=== PATIENT | female | born 1940 | race Caucasian/White ===

== ENCOUNTER 2017-07-25 07:01 | Inpatient (IN) ==
--- NOTE | 2017-07-25 07:05 | Anesthesia Evaluation PreOp ---
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 History: Denies Any Significant HX Other Medical History: Diabetes Type II, Thyroid, Other (anxiety/depression) Anesthesia History: No Prior Anesthetic Complications, Past Anesthesia Alcohol Use: none Drug use: none Medications and Allergies Albuterol Sulfate [Ventolin Hfa] 2 puff IH Q4H PRN 07/09/17 [History] Aspirin 81 mg PO DAILY 07/09/17 [History] Atorvastatin Calcium [Lipitor] 20 mg PO DAILY 07/09/17 [History] Fluticasone/Salmeterol [Advair 500-50 Diskus] 1 puff IH DAILY 07/09/17 [History] Furosemide [Lasix] 60 mg PO DAILY 07/09/17 [History] Levothyroxine [Synthroid] 125 mcg PO 0630 07/09/17 [History] Lisinopril [Zestril] 10 mg PO DAILY 07/09/17 [History] Loperamide [Imodium] 2 mg PO BID PRN 07/09/17 [History] Lysine HCl [l-Lysine] 500 mg PO DAILY 07/09/17 [History] Mag Hydrox/Al Hydrox/Simeth [NJ Acid Suspension] 30 ml PO QID PRN 07/09/17 [ History] Megestrol Acetate [Megace] 40 mg PO DAILY 07/09/17 [History] Metoprolol XL (24 HR) Succ [Toprol XL] 50 mg PO DAILY 07/09/17 [History] Ondansetron HCl [Zofran] 4 mg PO Q6H PRN 07/09/17 [History] Paroxetine [Paxil] 60 mg PO DAILY 07/09/17 [History] Potassium Chloride [K-Tab ER] 20 meq PO DAILY 07/09/17 [History] Tiotropium [Spiriva] 2 puff IH 0700 07/09/17 [History] 3 Allergy/AdvReac Type Severity Reaction Status Date / Time No Known Allergies Allergy Verified 07/25/17 07:48 - Meds/Allergy Pre-op Review Medications Reviewed: Yes Allergies Reviewed: Yes Beta Blockers on Current Med List: Yes If Beta Blockers taken, Date/Time (Last Dose taken): 07/24/2017 at 1700 Anesthesia Results - Labs Laboratory Tests 07/18/17 07/18/17 12:06 12:06 WBC 8.7 Hgb 10.2 L Hct 32.8 L Plt Count 232 Sodium 141 Potassium 3.7 BUN 12 Creatinine 1.18 H - Imaging EKG: report reviewed (04/25/2016 SR, possible LAE, NSST abnormality) Additional studies: 07/21/[address] IMPRESSION: Multiple pulmonary nodules, two in the right lower lobe and one in the left lower lobe. Thiese are in addition to a calcified nodule seen in the left lower lobe. Only one noncalcified nodule was previously seen in 2008. No evidence of adenopathy. Metastatic disease cannot be completely ruled out at this time. 04/04/2017 Echo Impressions: LVEF 60-65%. Normal left ventricular size and systolic function. Mild concentric hypertrophy of the left ventricle. No significant valvular dysfunction. No pulmonary hypertension. 11/19/2013 Echo Impressions: * Technically sub-optimal due to poor echocardiographic windows. * LVEF 60-65%. * Mild to moderate left ventricular hypertrophy. * Mild left ventricular diastolic dysfunction. * Normal right ventricular structure and function. * Mitral valve not well visualized. * Grossly, it appears normal in function. * No mitral regurgitation. * No mitral stenosis. * No evidence of pulmonary hypertension. Anesthesia Exam O2 Sat Height 1.73 m Height 1.73 m Weight 93.894 kg Weight 93.894 kg O2 Sat by Pulse Oximetry 100 Vital Signs Temp Pulse Resp BP Pulse Ox 97.8 F 86 18 100/31 100 07/25/17 07:47 07/25/17 07:47 07/25/17 07:47 07/25/17 07:47 07/25/17 07:47 Height: 5'8'' Weight: 207 lbs NPO (# of Hours): 8 Pain Scale: 0 Pain Scale Used: Numeric (1 - 10) - HEENT Pupil (Motor): EOMI Mallampati: II Teeth: Edentulous Oral Opening: Greater than 3 - WELL SHOOTER LOC: Oriented WELL SHOOTER Motor: Normal RUE, Normal LUE, Normal RLE, Normal LLE, Normal Face WELL SHOOTER Sensory: Normal: RUE, LUE, RLE, LLE, Face - Cardiac Rhythm: Regular Murmur: Systolic - Pulmonary Breath Sounds: bilateral Clear Respiratory Effort: Symmetrical Anesthesia Assess/Plan ASA Score: 4 Modified [place] Scale for Level of Consciousness: Cooperative, oriented, and tranquil Anesthetic Plan: General Monitoring Plan: Standard Monitors, A-Line Recovery Plan: PACU
--- NOTE | 2017-07-25 07:13 | History & Physical Report ---
Date of Encounter: 07/25/17 Time of Encounter: 07:11 24 Hour HP Update - Instructions Instructions: If the History and Physical is less than 30 days old and was completed prior to A.M. admission and or procedure and has NOT been updated on calendar day of procedure please complete this update prior to performing procedure. - Update Patient reports changes in Medical Condition: No Changes in examination, assessment, or condition: No Changes in Medication: No Preop tests/diagnostics Reviewed: Yes Surgery Remains Indicated: Yes Consent for Planned Operative Procedure(s) Verified: Yes Additions to current History and Physical: I will perform h/s d&c for endometrial thickening during bowel surgery - Pre-Operative Checklist Preoperative Checklist Indicated: Yes Prophylactic Antibiotic Ordered: Yes Home Medications Include Beta Nicole: No Beta Nicole Taken Today (Day of Surgery): No Beta Nicole Taken Yesterday (Day Prior to Surgery): No
[2017-07-25] MEDS ORDERED: Plasma-Lyte A (PH 7.4) 1,000 ML IVC SCH (07:15)
[2017-07-25] MEDS ORDERED: Albuterol 2.5 MG/3 ML NEBULIZER IH ONE (07:15)
[2017-07-25] MEDS ORDERED: cefOXitin 2,000 MG in D5% in Water (Mini-Bag+) 100 ML IVPB ONE (07:15)
[2017-07-25] MEDS ORDERED: Lidocaine -MPF 1% 2 ML VIAL ID ONE (07:15)
[2017-07-25] MEDS ORDERED: Albuterol 2.5 MG/3 ML NEBULIZER ONE (07:21)
[2017-07-25] MEDS ORDERED: *HR* Propofol 200 MG/20 ML VIAL IVP ONE (07:28)
[2017-07-25] MEDS ORDERED: *HR* FentaNYL (PF) 100 MCG/2 ML VIAL ONE (07:28)
[2017-07-25] MEDS ORDERED: Lidocaine -MPF 2% 2 ML VIAL ONE ×2 (07:29→07:35)
[2017-07-25] MEDS ORDERED: Ketamine *HR* 500 MG/10 ML MDV ONE (07:29)
[2017-07-25] MEDS ORDERED: *HR* Rocuronium Bromide 50 MG/5 ML VIAL ONE (07:30)
[2017-07-25] MEDS ORDERED: Acetaminophen IV 1,000 MG/100 ML INFUS..BTL ONE (08:06)
--- NOTE | 2017-07-25 08:09 | History & Physical Report ---
Date of Encounter: 07/25/17 Time of Encounter: 08:08 24 Hour HP Update - Instructions Instructions: If the History and Physical is less than 30 days old and was completed prior to A.M. admission and or procedure and has NOT been updated on calendar day of procedure please complete this update prior to performing procedure. - Update Patient reports changes in Medical Condition: No Changes in examination, assessment, or condition: No Changes in Medication: No Preop tests/diagnostics Reviewed: Yes Surgery Remains Indicated: Yes Consent for Planned Operative Procedure(s) Verified: Yes - Pre-Operative Checklist Preoperative Checklist Indicated: Yes Prophylactic Antibiotic Ordered: Yes Home Medications Include Beta Nicole: Yes Beta Nicole Taken Today (Day of Surgery): No Beta Nicole Taken Yesterday (Day Prior to Surgery): Yes
[2017-07-25] MEDS ORDERED: Ondansetron 4 MG/2 ML VIAL ONE ×2 (09:05→14:21)
[2017-07-25] MEDS ORDERED: Dexamethasone 4 MG/ML VIAL ONE ×2 (09:05→14:21)
[2017-07-25] MEDS ORDERED: *HR* HYDROmorphone (PF) 1 MG/ML SYRINGE IVP PRN ×2 (09:59→12:23)
[2017-07-25] MEDS ORDERED: Ondansetron 4 MG/2 ML VIAL IVP PRN ×2 (09:59→12:23)
--- NOTE | 2017-07-25 10:07 | OB/GYN Procedure Note ---
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: Procedure - Diagnosis Date of procedure: 07/25/17 Pre-op diagnosis: Postmenopausal bleedin mm endometrial thickening, colon cancer Post-op diagnosis: other (Large endometrial polyps otherwise thin endometrium) - Procedure Procedure: Hysteroscopy fractional dilation and curettage, polypectomy Surgeon: Kal Sahni Anesthesia Type: General Estimated blood loss (cc): 10 Fluids: crystalloid Specimens collected: Endocervical curettings, endometrial curettings, polyps Disposition: PACU Findings: 4 large can-colored polypoid lesions each about the size of a great, normal cornua bilaterally, normal uterine cavity aside from the polyps Narrative: Javan is a 76-year-old female having partial colectomy today by Dr. Rooney for colon cancer who was found on preoperative workup to have endometrial thickening on CAT scan and ultrasound overall uterine size was normal as were both ovaries endometrial thickness was approximately 19 mm. She has been followed for the last several years for postmenopausal bleeding and endometrial thickening she has been on Megace which controlled the bleeding endometrial biopsy in 2011 showed endometritis. Discussed with patient options decision was made proceed with hysteroscopy dilation and curettage. Patient was aware of operative risks and signed appropriate consent. Description procedure: Patient was taken operating room where general anesthesia was administered. She was prepped and draped in usual sterile fashion. Cervix is visualized and grasped with single-tooth tenaculum. Uterus was sounded to 8 cm. Endocervical curettings were performed. Cervix was then dilated large size Hanks dilator hysteroscopy was performed revealing 4 large can-colored polypoid lesions. The rest of the uterine cavity appeared normal with normal cornua bilaterally. The polypoid lesions or grasped with polyp forceps and removed without difficulty. Gentle sharp curettage was then performed several times revealing smooth endometrial cavity. Hysteroscopy was performed hemostasis was ensured patient was awakened taken recovery in good condition.
[2017-07-25] MEDS ORDERED: *HR* Magnesium Sulfate 1 GM/2 ML VIAL ONE (11:04)
[2017-07-25] MEDS ORDERED: Ketorolac 30 MG/ML VIAL ONE ×2 (11:04→14:33)
[2017-07-25] MEDS ORDERED: Neostigmine Methylsulfate 3 MG/3 ML SYRINGE ONE (11:18)
[2017-07-25] MEDS ORDERED: Naloxone 0.4 MG/ML INJ IVP PRN (12:23)
[2017-07-25] MEDS: D5% in 0.45% NACL 1,000 ML IVC SCH (15:50)
[2017-07-25] MEDS: *HR* Heparin 5,000 UNIT/ML VIAL SQ SCH (18:42)
[2017-07-26] MEDS: *HR* Heparin 5,000 UNIT/ML VIAL SQ SCH ×2 (05:24→17:56)
[2017-07-26] MEDS: D5% in 0.45% NACL 1,000 ML IVC SCH ×2 (06:57→20:50)
[2017-07-26 07:05] LABS: BUN/Creatinine Ratio 11 (6-26); Blood Urea Nitrogen 11 mg/dL (7-20); Calcium 8.6 mg/dL (8.6-10.8); Carbon Dioxide 29 mEq/L (19-29); Chloride 104 mEq/L (98-109); Glucose 149 mg/dL (70-99); Osmolality,Calculated 290 (280-300); Sodium 139 mEq/L (136-145); eGFR For African Americans > 60 (> 60); eGFR For Non-African Americans 52 (> 60)
[2017-07-26 07:06] LABS: Basophils % 0.1 %; Hematocrit 28.2 % (35.3-44.9); Hemoglobin 8.9 g/dL (11.5-15.4); Immature Granulocytes % 0.4 % (0-4); Lymphocytes % 7.5 %; Mean Corpuscular HGB Conc 31.6 g/dL (31.6-35.5); Mean Corpuscular Hemoglobin 27.9 pg (28.0-33.3); Mean Corpuscular Volume 88.4 fL (83.0-100.0); Mean Platelet Volume 10.7 fL (9.4-12.4); Monocytes # 0.7 K/mcL (0.0-1.3); Monocytes % 5.6 %; Neutrophils # 10.9 K/mcL (1.6-8.9); Platelet Count 222 K/mcL (140-400); Red Blood Count 3.19 M/mcL (3.82-4.97); Red Cell Distribution Width 15.3 % (11.5-14.5); Segmented Neutrophils % 86.4 %
--- NOTE | 2017-07-26 11:58 | General Surgery Progress Note ---
<Clifton Alejandra - Last Filed: 07/26/17 11:55> Date of Encounter: 07/26/17 Time of Encounter: 07:45 - Assessment and Plan (1) S/P right hemicolectomy Current Visit: Yes Status: Acute POD #1 s/p robotic-assisted right hemicolectomy performed 07/25/[address] Hernández patient tolerated the procedure well No nausea, but anorexic She did have 3 small bowel movements last night, but little flatus. She was able to tolerate some clear liquids. Plan to keep on clears today and possibly advance tomorrow. Advised OOB and IS. Pain management Supportive care Wound care (2) Ascending colon malignant neoplasm Current Visit: Yes Status: Acute See plan of care above (3) Leukocytosis Current Visit: Yes Status: Acute WBC count 12.6 this morning No signs of infection currently Will monitor (4) DVT prophylaxis Current Visit: Yes Status: Acute Continue heparin subq 5000 units q12h Subjective Patient reports: no new complaints, still having pain, pain is less, tolerating liquids well, voiding w/o difficulty, flatus, bowel movement, afebrile Objective Vital Signs - Last 8 Hours Temp Pulse Resp BP Pulse Ox 07/26/17 11:03 98.9 F 83 15 116/70 96 07/26/17 07:37 99.0 F 82 16 104/64 96 Intake and Output 07/25/17 07/26/17 07/26/17 23:59 07:59 15:59 Intake Total 1000 / 1000 Output Total 150 / 150 Balance -150 / -150 1000 / 1000 Intake: IV Fluids 1000 / 1000 D5% And 0.45% Nacl 1000 1000 / 1000 Ml Bag 1,000 ML @ 75 mls/ hr IVC .[id number] [facility] Rx#: [id number] Output: Urine 150 / 150 Other: Stool Size Smear Stool Consistency loose Stool Color Brown # Bowel Movements 1 Weight 87.9 kg Blood Glucose* 218 175 154 Patient Weight 07/26/17 23:59 Weight 87.9 kg - General physical appearance well developed, well nourished, no distress, obese - Eyes normal ocular movement - ENT atraumatic, normocephalic - Neck Neck exam: trachea midline - Respiratory normal expansion, normal respiratory effort - Cardiovascular Cardiovascular exam: Present: RRR - Abdomen Abdomen: Present: bowel sounds present, soft, tender (expected postoperative tenderness). Absent: guarding, rebound Abdominal Tenderness: diffusely (R > L) - Incision Incision: Present: clean and dry, intact - Neurologic other (somnolent) - Musculoskeletal normal posture - Psychiatric speech is normal - Labs 07/26/17 05:23 07/26/17 05:23 Diabetes panel 07/26/17 Range/Units 05:23 Sodium 139 (136-145) mEq/L Potassium 4.0 (3.5-4.5) mEq/L Chloride 104 (98-109) mEq/L Carbon Dioxide 29 (19-29) mEq/L BUN 11 (7-20) mg/dL Creatinine 1.02 (0.57-1.11) mg/dL Glucose 149 H (70-99) mg/dL Calcium 8.6 (8.6-10.8) mg/dL Calcium panel 07/26/17 Range/Units 05:23 Calcium 8.6 (8.6-10.8) mg/dL Pituitary panel 07/26/17 Range/Units 05:23 Sodium 139 (136-145) mEq/L Potassium 4.0 (3.5-4.5) mEq/L Chloride 104 (98-109) mEq/L Carbon Dioxide 29 (19-29) mEq/L BUN 11 (7-20) mg/dL Creatinine 1.02 (0.57-1.11) mg/dL Glucose 149 H (70-99) mg/dL Calcium 8.6 (8.6-10.8) mg/dL Adrenal panel 07/26/17 Range/Units 05:23 Sodium 139 (136-145) mEq/L Potassium 4.0 (3.5-4.5) mEq/L Chloride 104 (98-109) mEq/L Carbon Dioxide 29 (19-29) mEq/L BUN 11 (7-20) mg/dL Creatinine 1.02 (0.57-1.11) mg/dL Glucose 149 H (70-99) mg/dL Calcium 8.6 (8.6-10.8) mg/dL - VTE Documentation of Mechanical Device: Intermittent pneumatic compression device Consult Discharge Plan - Plan Referrals: Yanelis Person, CASE ADVOCATE [Primary Care Provider] - <Jed Porras - Last Filed: 07/26/17 14:04> Date of Encounter: 07/26/17 Objective Vital Signs - Last 8 Hours Temp Pulse Resp BP Pulse Ox 07/26/17 11:03 98.9 F 83 15 116/70 96 07/26/17 07:37 99.0 F 82 16 104/64 96 Intake and Output 07/25/17 07/26/17 07/26/17 23:59 07:59 15:59 Intake Total 1000 / 1000 300 / 300 Output Total 150 / 150 200 / 200 Balance -150 / -150 1000 / 1000 100 / 100 Intake: IV Fluids 1000 / 1000 D5% And 0.45% Nacl 1000 1000 / 1000 Ml Bag 1,000 ML @ 75 mls/ hr IVC .[id number] [facility] Rx#: [id number] Oral 300 / 300 Output: Urine 150 / 150 200 / 200 Other: Meal Lunch Stool Size Smear Stool Consistency loose Stool Color Brown # Bowel Movements 1 Weight 87.9 kg Blood Glucose* 218 175 154 Patient Weight 07/26/17 23:59 Weight 87.9 kg - Labs 07/26/17 05:23 07/26/17 05:23 Diabetes panel 07/26/17 Range/Units 05:23 Sodium 139 (136-145) mEq/L Potassium 4.0 (3.5-4.5) mEq/L Chloride 104 (98-109) mEq/L Carbon Dioxide 29 (19-29) mEq/L BUN 11 (7-20) mg/dL Creatinine 1.02 (0.57-1.11) mg/dL Glucose 149 H (70-99) mg/dL Calcium 8.6 (8.6-10.8) mg/dL Calcium panel 07/26/17 Range/Units 05:23 Calcium 8.6 (8.6-10.8) mg/dL Pituitary panel 07/26/17 Range/Units 05:23 Sodium 139 (136-145) mEq/L Potassium 4.0 (3.5-4.5) mEq/L Chloride 104 (98-109) mEq/L Carbon Dioxide 29 (19-29) mEq/L BUN 11 (7-20) mg/dL Creatinine 1.02 (0.57-1.11) mg/dL Glucose 149 H (70-99) mg/dL Calcium 8.6 (8.6-10.8) mg/dL Adrenal panel 07/26/17 Range/Units 05:23 Sodium 139 (136-145) mEq/L Potassium 4.0 (3.5-4.5) mEq/L Chloride 104 (98-109) mEq/L Carbon Dioxide 29 (19-29) mEq/L BUN 11 (7-20) mg/dL Creatinine 1.02 (0.57-1.11) mg/dL Glucose 149 H (70-99) mg/dL Calcium 8.6 (8.6-10.8) mg/dL - Attending Attestation I examined this patient and my medical decision-making was reviewed with the Resident Physician. I agree with the documented findings, disposition and treatment plan as described except to the extent set forth below. The patient is seen and evaluated on morning rounds. She is afebrile and her vital signs are stable. She has good bowel sounds. We will maintain her on clear liquids. She will likely go home tomorrow. Increase ambulation Jed Porras MD FACS
[2017-07-27] MEDS: *HR* Heparin 5,000 UNIT/ML VIAL SQ SCH ×2 (04:52→18:31)
[2017-07-27 05:42] LABS: Hematocrit 27.7 % (35.3-44.9); Hemoglobin 8.9 g/dL (11.5-15.4); Mean Corpuscular HGB Conc 32.1 g/dL (31.6-35.5); Mean Corpuscular Hemoglobin 28.3 pg (28.0-33.3); Mean Corpuscular Volume 88.2 fL (83.0-100.0); Mean Platelet Volume 10.2 fL (9.4-12.4); Platelet Count 222 K/mcL (140-400); Red Blood Count 3.14 M/mcL (3.82-4.97); Red Cell Distribution Width 15.6 % (11.5-14.5)
[2017-07-27 05:54] LABS: BUN/Creatinine Ratio 9 (6-26); Blood Urea Nitrogen 8 mg/dL (7-20); Calcium 8.6 mg/dL (8.6-10.8); Carbon Dioxide 32 mEq/L (19-29); Chloride 104 mEq/L (98-109); Glucose 122 mg/dL (70-99); Osmolality,Calculated 292 (280-300); Potassium 3.7 mEq/L (3.5-4.5); Sodium 141 mEq/L (136-145); eGFR For African Americans > 60 (> 60); eGFR For Non-African Americans > 60 (> 60)
[2017-07-27] MEDS: D5% in 0.45% NACL 1,000 ML IVC SCH (10:22)
[2017-07-27] MEDS: Ondansetron 4 MG/2 ML VIAL IVP PRN (12:33)
--- NOTE | 2017-07-27 13:35 | General Surgery Progress Note ---
<Clifton Alejandra - Last Filed: 07/27/17 15:29> Date of Encounter: 07/27/17 Time of Encounter: 13:30 - Assessment and Plan (1) S/P right hemicolectomy Current Visit: Yes Status: Acute POD #2 s/p robotic-assisted right hemicolectomy performed 07/25/[address] Hernández patient tolerated the procedure well Patient is experiencing nausea but no vomiting. She is has been having flatus and BM She has been tolerating clears with mild nausea We will try advancing to fulls for dinner. If she does not tolerate, we will return to clears Advised OOB and IS. Pain management Supportive care Wound care (2) Ascending colon malignant neoplasm Current Visit: Yes Status: Acute See plan of care above f/u with oncology on Friday, Dr. Valenzuela (3) Leukocytosis Current Visit: Yes Status: Resolved WBC count 10.3 this morning Will monitor (4) DVT prophylaxis Current Visit: Yes Status: Acute Continue heparin subq 5000 units q12h Subjective Patient reports: no new complaints, still having pain, pain is less, voiding w/ o difficulty, flatus, bowel movement, nausea (mild, after eating), afebrile Objective Vital Signs - Last 8 Hours Temp Pulse Resp BP Pulse Ox 07/27/17 10:41 98.7 F 83 16 111/57 95 07/27/17 07:01 98.3 F 76 18 107/64 95 Intake and Output 07/26/17 07/27/17 07/27/17 23:59 07:59 15:59 Intake Total 1000 / 1000 1200 / 1200 Output Total 200 / 200 600 / 600 Balance 800 / 800 -600 / -600 1200 / 1200 Intake: IV Fluids 1000 / 1000 1200 / 1200 D5% And 0.45% Nacl 1000 1000 / 1000 1200 / 1200 Ml Bag 1,000 ML @ 75 mls/ hr IVC .[id number] [facility] Rx#: [id number] Output: Urine 200 / 200 600 / 600 Other: Stool Size Small Stool Consistency loose # Bowel Movements 1 Blood Glucose* 133 117 102 - General physical appearance well developed, well nourished, no distress, obese - Eyes normal ocular movement - ENT atraumatic, normocephalic - Neck Neck exam: trachea midline - Respiratory normal expansion, normal respiratory effort, clear to auscultation - Cardiovascular Cardiovascular exam: Present: RRR - Abdomen Abdomen: Present: bowel sounds present, soft, tender (expected postoperative tenderness) - Incision Incision: Present: clean and dry, intact - Musculoskeletal normal posture - Psychiatric speech is normal - Labs 07/27/17 05:27 07/27/17 05:27 Diabetes panel 07/27/17 Range/Units 05:27 Sodium 141 (136-145) mEq/L Potassium 3.7 (3.5-4.5) mEq/L Chloride 104 (98-109) mEq/L Carbon Dioxide 32 H (19-29) mEq/L BUN 8 (7-20) mg/dL Creatinine 0.88 (0.57-1.11) mg/dL Glucose 122 H (70-99) mg/dL Calcium 8.6 (8.6-10.8) mg/dL Calcium panel 07/27/17 Range/Units 05:27 Calcium 8.6 (8.6-10.8) mg/dL Pituitary panel 07/27/17 Range/Units 05:27 Sodium 141 (136-145) mEq/L Potassium 3.7 (3.5-4.5) mEq/L Chloride 104 (98-109) mEq/L Carbon Dioxide 32 H (19-29) mEq/L BUN 8 (7-20) mg/dL Creatinine 0.88 (0.57-1.11) mg/dL Glucose 122 H (70-99) mg/dL Calcium 8.6 (8.6-10.8) mg/dL Adrenal panel 07/27/17 Range/Units 05:27 Sodium 141 (136-145) mEq/L Potassium 3.7 (3.5-4.5) mEq/L Chloride 104 (98-109) mEq/L Carbon Dioxide 32 H (19-29) mEq/L BUN 8 (7-20) mg/dL Creatinine 0.88 (0.57-1.11) mg/dL Glucose 122 H (70-99) mg/dL Calcium 8.6 (8.6-10.8) mg/dL - VTE Documentation of Mechanical Device: Intermittent pneumatic compression device Consult Discharge Plan - Plan Referrals: Yanelis Person, TRANSMISSION SUPERVISOR [Primary Care Provider] - <Jed Porras - Last Filed: 07/28/17 09:34> Date of Encounter: 07/27/17 Objective Vital Signs - Last 8 Hours Temp Pulse Resp BP Pulse Ox 07/28/17 06:24 98.4 F 79 18 131/70 94 Intake and Output 07/27/17 07/28/17 07/28/17 23:59 07:59 15:59 Intake Total 1350 / 1350 Output Total 300 / 300 Balance 1350 / 1350 -300 / -300 Intake: IV Fluids 1000 / 1000 D5% And 0.45% Nacl 1000 1000 / 1000 Ml Bag 1,000 ML @ 75 mls/ hr IVC .[id number] [facility] Rx#: [id number] Oral 350 / 350 Output: Urine 300 / 300 Other: Meal Dinner Percent of Meal Consumed 65% Stool Size Smear Blood Glucose* 118 123 - Labs 07/27/17 05:27 07/27/17 05:27 - Attending Attestation I examined this patient and my medical decision-making was reviewed with the Resident Physician. I agree with the documented findings, disposition and treatment plan as described except to the extent set forth below. The patient is seen and evaluated with the resident on morning rounds. She is slow to advance her dietary intake. She has had flatus. Think that she will require 1 more day of hospitalization for IV hydration and nutritional support prior to discharge. Jed Porras MD FACS
[2017-07-28] MEDS: D5% in 0.45% NACL 1,000 ML IVC SCH ×2 (01:38→15:24)
[2017-07-28] MEDS: *HR* Heparin 5,000 UNIT/ML VIAL SQ SCH (05:27)
[2017-07-28] MEDS: Ondansetron 4 MG/2 ML VIAL IVP PRN (05:28)
[2017-07-28 10:48] VITALS: BP 106/68
--- NOTE | 2017-07-28 13:54 | General Surgery Progress Note ---
Date of Encounter: 07/28/17 Time of Encounter: 13:45 - Assessment and Plan (1) S/P right hemicolectomy Current Visit: Yes Status: Acute Postoperative day #3 from a robotic-assisted right hemicolectomy with Dr. Hernández Postoperative day #3 from a Hysteroscopy fractional dilation and curettage, polypectomy with Dr. Sahni Pathology pending Advance to soft, chopped meat diet IV fluids at 75 mL's per hour Supportive care and pain control IS every 1 hour while awake Ambulatory hallways with assistance PPI therapy daily Imodium prn for diarrhea (2) DVT prophylaxis Current Visit: Yes Status: Acute Heparin 5000 units subcutaneous twice daily for DVT prophylaxis EPCDs to bilateral lower extremities for DVT prophylaxis Ambulatory hallways with assistance Subjective Patient reports: feels better, still having pain, pain is less, tolerating liquids well (full liquids), voiding w/o difficulty, flatus, bowel movement, diarrhea, afebrile Objective Vital Signs - Last 8 Hours Temp Pulse Resp BP Pulse Ox 07/28/17 10:27 98.2 F 78 16 106/68 98 07/28/17 06:24 98.4 F 79 18 131/70 94 Intake and Output 07/27/17 07/28/17 07/28/17 23:59 07:59 15:59 Intake Total 1350 / 1350 120 / 120 Output Total 300 / 300 Balance 1350 / 1350 -300 / -300 120 / 120 Intake: IV Fluids 1000 / 1000 D5% And 0.45% Nacl 1000 1000 / 1000 Ml Bag 1,000 ML @ 75 mls/ hr IVC .[id number] [facility] Rx#: [id number] Oral 350 / 350 120 / 120 Output: Urine 300 / 300 Other: Meal Dinner Breakfast Percent of Meal Consumed 65% 10% Stool Size Smear Weight 91.6 kg Blood Glucose* 118 123 Patient Weight 07/28/17 23:59 Weight 91.6 kg - General physical appearance well developed, well nourished, no distress - Eyes normal ocular movement - ENT normal mucosa, atraumatic, normocephalic - Neck Neck exam: trachea midline - Respiratory normal respiratory effort, clear to auscultation - Cardiovascular Cardiovascular exam: Present: RRR - Abdomen Abdomen: Present: bowel sounds present (hypoactive), soft, tender (Expected postoperative tenderness) - Incision Incision: Present: clean and dry, intact - Integumentary no rash, no growths - Neurologic CN 2-12 grossly intact - Musculoskeletal normal gait, normal posture - Psychiatric oriented to time, oriented to person, oriented to place, speech is normal, memory intact - Labs 07/27/17 05:27 07/27/17 05:27 - VTE Documentation of Mechanical Device: Intermittent pneumatic compression device Consult Discharge Plan - Plan Referrals: Yanelis Person, PSYCH TECH [Primary Care Provider] - - Attending Attestation For this encounter, I have reviewed the RAIL FLAW DETECTOR OPERATOR or PA documentation, treatment plan, and medical decision making; and I have had face to face time with this patient.
--- NOTE | 2017-07-28 15:09 | Discharge Summary ---
Date of Encounter: 07/28/17 Time of Encounter: 15:00 - Discharge Diagnosis (1) S/P right hemicolectomy Priority: Primary Status: Acute - Discharge Medications Prescriptions: Loperamide [Imodium] 2 mg PO Q4HR PRN #40 capsule PRN Reason: Diarrhea Acetaminophen [8 Hour] 650 mg PO Q6H PRN #30 tablet.er PRN Reason: Pain Home Medications: Albuterol Sulfate [Ventolin Hfa] 2 puff IH Q4H PRN 07/09/17 [History] Aspirin 81 mg PO DAILY 07/09/17 [History] Atorvastatin Calcium [Lipitor] 20 mg PO DAILY 07/09/17 [History] Fluticasone/Salmeterol [Advair 500-50 Diskus] 1 puff IH DAILY 07/09/17 [History] Furosemide [Lasix] 60 mg PO DAILY 07/09/17 [History] Levothyroxine [Synthroid] 125 mcg PO 0630 07/09/17 [History] Lisinopril [Zestril] 10 mg PO DAILY 07/09/17 [History] Loperamide [Imodium] 2 mg PO BID PRN 07/09/17 [History] Lysine HCl [l-Lysine] 500 mg PO DAILY 07/09/17 [History] Mag Hydrox/Al Hydrox/Simeth [SD Acid Suspension] 30 ml PO QID PRN 07/09/17 [ History] Megestrol Acetate [Megace] 40 mg PO DAILY 07/09/17 [History] Metoprolol XL (24 HR) Succ [Toprol Xl] 50 mg PO DAILY 07/09/17 [History] Ondansetron HCl [Zofran] 4 mg PO Q6H PRN 07/09/17 [History] Paroxetine [Paxil] 60 mg PO DAILY 07/09/17 [History] Potassium Chloride [K-Tab ER] 20 meq PO DAILY 07/09/17 [History] Tiotropium [Spiriva] 2 puff IH 0700 07/09/17 [History] Acetaminophen [8 Hour] 650 mg PO Q6H PRN #30 tablet.er 07/28/17 [Rx] Loperamide [Imodium] 2 mg PO Q4HR PRN #40 capsule 07/28/17 [Rx] Allergies/Adverse Reactions: 3 Allergy/AdvReac Type Severity Reaction Status Date / Time No Known Allergies Allergy Verified 07/25/17 07:48 General Surgery Exam Initial Vital Signs Temp Pulse Resp BP Pulse Ox 97.8 F 86 18 100/31 100 07/25/17 07:47 07/25/17 07:47 07/25/17 07:47 07/25/17 07:47 07/25/17 07:47 - General physical appearance well developed, well nourished, no distress - Eyes normal ocular movement - ENT normal mucosa, atraumatic, normocephalic - Neck trachea midline - Respiratory normal respiratory effort, clear to auscultation - Cardiovascular Cardiovascular exam: Present: RRR - Abdomen Abdomen general surgery: Present: bowel sounds present, soft, tender (expected tenderness) - Incision Incision: Present: clean and dry, intact - Integumentary Integumentary general surgery: Present: warm and dry - Neurologic Present: CN 2-12 grossly intact - Musculoskeletal Present: normal gait, normal posture - Psychiatric Psychiatric general surgery: Present: appropriate, oriented to person, oriented to place, oriented to time, speech is normal, memory intact Date of admission: 07/25/17 12:56 Primary care physician: Yanelis Person CNP Consults: 07/25/17 15:08 Consult to Lpn Rn Hospice [CONS] Routine Reason for SW Consult: Return to [facility] Discharging clinician[facility] Anticipated date of discharge: 07/28/17 - Patient Status Disposition: Home, Self-Care Condition: Good Functional capacity at discharge: independent ambulation Overall status at discharge: patient is progressing back to baseline - Discharge Instructions Follow Up With: Yanelis Person CNP [Primary Care Provider] - Marco A Hernández DO [Partnered Physician] - 08/07/17 1:40 pm ([facility]) Additional Instructions: #1 may shower, no tub bath for 2 weeks #2 wash incisions with soap and water and pat dry daily #3 no lifting, pushing, pulling more than 15 pounds for the next 4 weeks #4 no driving until off narcotics for 24 hours and able to safely react in the car #5 may climb stairs - Diet and Activity Activity: other (See additional discharge instructions above) Diet: other (Mechanical soft, chopped meat diet for 1 week and then advance to regular diet) - Hospital Course Hospital course: Ms. Reich is a 76 year old female who has been followed by Dr. Hernández as an outpatient for an ascending colon cancer. She was taken to the operating room and did undergo a robotic-assisted right hemicolectomy with Dr. Hernández. She also had a combined surgery with Dr. Sahni for a Hysteroscopy fractional dilation and curettage, polypectomy. Her diet and has slowly been advanced with return of bowel function. She is currently tolerating a soft diet without nausea or vomiting. She does have complaints of diarrhea and we will trial her on Imodium. Her vital signs are stable and she is afebrile. Her laboratory values are within normal limits. She denies having any pain at this time. We will begin discharge planning to home and plan for outpatient follow-up in the next 10-14 days. Her pathology is pending. - Time Spent with Patient Total time spent providing and/or coordinating discharge services: Greater than 30 minutes Labs on day of discharge: Labs from last 24 hours 07/28/17 07/27/17 07/27/17 07:11 16:49 12:05 POC Glucose 123 H 118 H 102 H - Attending Attestation For this encounter, I have reviewed the VOCATIONAL COUNSELOR or PA documentation, treatment plan, and medical decision making; and I have had face to face time with this patient.
--- NOTE | 2017-07-28 15:28 | Physician Discharge Referral ---
ExtendedCare Referral Info Transfer To: [facility] Provider in Charge: Dr. Stewart Hernández Provider in Charge after Transfer: Other (Same) Institutional Level of Care: Skilled - Diagnosis (1) S/P right hemicolectomy Priority: Primary Status: Acute Expected Duration of Placement: greater than 30 days Prognosis: Good Aware of Diagnosis: Patient, Family Aware of Prognosis: Patient, Family - Transfer Medications Prescriptions: Loperamide [Imodium] 2 mg PO Q4HR PRN #40 capsule PRN Reason: Diarrhea Acetaminophen [8 Hour] 650 mg PO Q6H PRN #30 tablet.er PRN Reason: Pain Home Medications: Albuterol Sulfate [Ventolin Hfa] 2 puff IH Q4H PRN 07/09/17 [History] Aspirin 81 mg PO DAILY 07/09/17 [History] Atorvastatin Calcium [Lipitor] 20 mg PO DAILY 07/09/17 [History] Fluticasone/Salmeterol [Advair 500-50 Diskus] 1 puff IH DAILY 07/09/17 [History] Furosemide [Lasix] 60 mg PO DAILY 07/09/17 [History] Levothyroxine [Synthroid] 125 mcg PO 0630 07/09/17 [History] Lisinopril [Zestril] 10 mg PO DAILY 07/09/17 [History] Loperamide [Imodium] 2 mg PO BID PRN 07/09/17 [History] Lysine HCl [l-Lysine] 500 mg PO DAILY 07/09/17 [History] Mag Hydrox/Al Hydrox/Simeth [[place] Acid Suspension] 30 ml PO QID PRN 07/09/17 [ History] Megestrol Acetate [Megace] 40 mg PO DAILY 07/09/17 [History] Metoprolol XL (24 HR) Succ [Toprol Xl] 50 mg PO DAILY 07/09/17 [History] Ondansetron HCl [Zofran] 4 mg PO Q6H PRN 07/09/17 [History] Paroxetine [Paxil] 60 mg PO DAILY 07/09/17 [History] Potassium Chloride [K-Tab ER] 20 meq PO DAILY 07/09/17 [History] Tiotropium [Spiriva] 2 puff IH 0700 07/09/17 [History] Acetaminophen [8 Hour] 650 mg PO Q6H PRN #30 tablet.er 07/28/17 [Rx] Loperamide [Imodium] 2 mg PO Q4HR PRN #40 capsule 07/28/17 [Rx] Allergies/Adverse Reactions: 3 Allergy/AdvReac Type Severity Reaction Status Date / Time No Known Allergies Allergy Verified 07/25/17 07:48 - Respiratory Orders Oxygen / L per min (2-3 L per nasal cannula) - Ancillary Orders May use pressure relief devices daily prn, May go on MARI w/family/respon green party w /meds at nurse discretion PRN, May consult with Dentist, [employer], Solid Waste Technician PRN - Advance Directives Code Status: Full Code - Mobility Orders Chair, Ambulate - Rehabiliation Orders Rehab Potential: Good Rehab Orders: ROM Exercises, Evaluation for Physical Therapy, Evaluation for Occupational Therapy - Treatments Skin tear care topically daily PRN per policy List/Other: #1 may shower, no tub bath for 2 weeks #2 wash incisions with soap and water and pat dry daily #3 no lifting, pushing, pulling more than 15 pounds for the next 4 weeks #4 no driving until off narcotics for 24 hours and able to safely react in the car #5 may climb stairs - Diet Orders Regular (Mechanical soft, chopped meat diet for 1 week and then advance to regular diet) CERTIFICATION: I certify that the transfer of the above named patient to an Extended Care Facility is necessary for the continuing treatment of the diagnosis listed. The above information is true and accurate reflection of patient's current condition. Confidential - Redisclosure prohibited without a patient's written consent.
--- NOTE | 2017-07-29 16:40 | Operative Note ---
Date of procedure: 07/25/17 Pre-op diagnosis: Ascending colon cancer Post-op diagnosis: same Procedure: Robotic Ascending colectomy Anesthesia: KRISTA Surgeon: Marco A Hernández Estimated blood loss (cc): 25 Specimen: right colon Condition: stable Disposition: floor Procedure in Detail: After informed consent, the patient was taken to the operating room. The after adequate anesthesia the abdomen was prepped and draped. The patient was then placed in a slight head upposition and the robot was brought over the patient and the arms wereconnected. Once in place, I sat at the console and performed a dissection of the cecum and appendix, as well as the terminal ileum due to scarring retarded our excursion. Once this was freed, I then grasped the cecum with a clamp utilizing robotic arm number one and with the vessel sealer and another hand began to take down the peritoneal attachment around the ileocolic vessel. Once we were able to gain access into the retroperitoneum, the duodenum was identified and kept out of harm's way. The ileocolic vessel was taken with the vessel sealer. Once this was completed, then the remainder of the mesentery was divided using the vessel sealer towards the transverse colon. The transverse colon was then skeletonized and robotic 45mm stapler was used to transect the transverse colon. Once that was completed, then the attachments were taken down off of the hepatic flexure and the white line of Toldt was taken down on the right colic gutter as well. The terminal ileum was then divided after approximately 12 inches had been skeletonized. It too was taken with the robotic 45mm stapler. Once this was completed, then the transverse colon and the terminal ileum were opened with scissors. A common rant was opened in the colon and the terminal ileum, and then a robotic 45mm stapler was used to anastomose the bowel. Individual 3-0 silk sutures were then used to close the common enterotomy. Once this was completed, a small counter incision was made at one of the port sites and a 15 mm cannula site was placed as well as an endobag. The specimen was placed in the endobag and brought out through the left lower quadrant. The bowel was removed and placed on the back table. The fascia of the left lower quadrant incision was closed with an 0 Vicryl suture x3. The skin was closed with 4-0 Vicryl suture in inverted interrupted fashion. Dermabond was placed on the skin incisions. All the CO2 had been deflated from the abdomen prior to leaving the abdominal cavity. He tolerated the procedure well. All instrument counts and needle counts were correct at the end of the case. He was extubated in the operating room, taken to recovery in stable condition.
== END 2017-07-28 16:15 | DRG 331 ==
LOC: SAMDAY 07:01 → 3NENU 12:56 → 3ANU 07-28 09:51
PROVIDERS: ADMIT Surgery; ATTEND Surgery